=== PATIENT | female | born 1985 | race American Indian/Alaskan Native ===

== ENCOUNTER 2019-04-19 07:35 | Emergency (ER) | payer SELFPAY ==
[2019-04-19 08:02] VITALS: BP 126/84
--- NOTE | 2019-04-19 08:36 | Emergency Department Report ---
Upper Extremity - HPI Chief Complaint: Extremity Injury, Upper Stated Complaint: RT FINGER POSS BROKEN/PAIN Time Seen by Provider: 04/19/19 08:18 Upper Extremity: Left Middle Finger (injured left middle finger and complained of pain and swelling) Occurred When: 1 Day Mechanism: Hit with Object Severity: mild (09/10) Symptoms: Yes Pain with Movement (left middle finger), Yes Swelling (LT middle finger), No Deformity, No Limited Range of Movement (lt middle finger), No Numbness, No Weakness, No Bruising/Ecchymosis, No Laceration or Abrasion Other History: Patient reported that she injured her left middle finger yesterday by jamming. ED Review of Systems ROS: Stated complaint: RT FINGER POSS BROKEN/PAIN Other details as noted in HPI Constitutional: denies: chills, fever Respiratory: denies: cough, shortness of breath Cardiovascular: denies: chest pain, palpitations Gastrointestinal: denies: nausea, vomiting Musculoskeletal: joint swelling, arthralgia. denies: back pain Skin: denies: rash Neurological: denies: weakness, numbness, paresthesias ED Past Medical Hx - Past Medical History Previous Medical History?: Yes Hx Asthma: Yes - Surgical History Past Surgical History?: No - Family History Family history: hypertension - Social History Smoking Status: Current Some Day Smoker Substance Use Type: Alcohol - Medications Home Medications: Home Medications Medication Instructions Recorded Confirmed Last Taken Type Ibuprofen [Motrin] 800 mg PO Q8HR PRN #12 tablet 04/19/19 Unknown Rx Upper Extremity Exam - Exam General: Vital signs noted. No distress. Alert and acting appropriately. 33-year-old female well-nourished well-developed in no acute distress Head and Torso: No HEENT Abnormality, No Neck Tenderness, No Chest/Lungs Abnormality, No Abdominal Tenderness, No Back Tenderness Shoulder Exam: Yes Normal Range of Motion in Shoulder, No Shoulder Tenderness, No Clavicle Tenderness, No Shoulder Deformity, No AC Joint Tenderness Arm Exam: No Arm/Humerus Tenderness, No Arm Deformity Elbow: Yes Normal Range of Motion in Elbow, No Elbow Tenderness, No Elbow Deformity Forearm: No Forearm Tenderness, No Forearm Deformity, No Pain with Pronation, No Pain with Supination Wrist: Yes Normal ROM in Wrist, No Wrist Tenderness, No Wrist Deformity, No Snuffbox Tenderness, No Pain with Axial Thumb Compression Hand: Yes Digit Tenderness (left middle finger DIP and MIP joint), No Hand Tenderness, No Hand Deformity, No Normal ROM in Digit(s) (left middle finger with swelling and tenderness to palpate), No Digit(s) Deformity, No Tendon Dysfunction CMS Exam: Yes Normal Distal Pulses (No cce. + 2 pulses in all extremities, no neurovascular compromise), Yes Normal Capillary Refill, Yes Normal Distal Sensation, No Broken Skin ED Course Vital Signs 04/19/19 08:00 Temperature 98.4 F Pulse Rate 76 Respiratory 18 Rate Blood Pressure 126/84 O2 Sat by Pulse 100 Oximetry - Reevaluation(s) Reevaluation #1: 04/19/19 10:45 stable throughout ED course. Please see procedure note for details and splinted - Orthopedic Splinting/Casting Injury #1 Side: left Upper Extremity Injury Location: finger Upper Extremity Immobilizer: aluminum form splint Additional Comments: She will good color, sensation, movement and temperature to left middle finger ED Medical Decision Making - Radiology Data Radiology results: report reviewed X-ray of left long finger dictated by radiologist and report reviewed by myself. Please see report below Findings [facility] [address] [place] [address] XRay Report Signed Patient: MOSES SANTANA MR#: [id number] : 1985 Acct:[id number] Age/Sex: 33 / F ADM Date: 04/19/19 Loc: ED Attending Dr: Ordering Physician: ÁNGEL CARLIN Date of Service: 04/19/19 Procedure(s): XR finger(s) 1V LT Accession Number(s): [id number] cc: ÁNGEL CARLIN Fluoro Time In Minutes: Left long finger-3 views INDICATION: left middle finger injury with pain and swelling. COMPARISON: None. IMPRESSION: Mild soft tissue swelling about the long finger with no acute fracture or significant DJD. Signer Name: Evans May MD Signed: 04/19/2019 10:24 AM Workstation Name: [id number] Transcribed By: ROBERTO Dictated By: Evans May MD Electronically Authenticated By: Evans May MD Signed Date/Time: 04/19/19 1024 DD/ 1023 TD/TT: - Medical Decision Making 33-year-old patient with injury to left middle finger. Exam showed swelling and tenderness to the IP and MIP joint. Pain with range of motion. X-ray finding and for swelling without any fracture or dislocation. I discussed this with patient in detail also discuss splints and medication and she was understanding. I discussed with her that she needs to follow-up with her primary care doctor in 2-3 days follow-up injury to finger. Please see procedure note for detail on splinted. X-ray report dictated by radiologist and reviewed by myself. See notes for details. Patient discharged home in stable condition. Vital signs stable she is afebrile and in no acute distress her prescription for Motrin. - Differential Diagnosis fracture versus dislocation, contusion versus MSK pain Critical care attestation.: If time is entered above; I have spent that time in minutes in the direct care of this critically ill patient, excluding procedure time. ED Disposition Clinical Impression: Contusion of finger of left hand Qualifiers: Encounter type: initial encounter Finger: middle finger Damage to nail status: without damage Qualified Code(s): S60.032A - Contusion of left middle finger without damage to nail, initial encounter Disposition: DC-01 TO HOME OR SELFCARE Is pt being admited?: No Does the pt Need Aspirin: No Condition: Stable Instructions: Contusion in Adults (ED), RICE Therapy (ED) Additional Instructions: Follow-up primary care physician as discussed. See discharge instruction in Rice therapy If condition worsens, return to the emergency room [facility] Referrals: NIKOLAS MEZA MD [Primary Care Provider] - 2-3 Days Forms: Work/School Release Form(ED)
--- NOTE | 2019-04-19 10:28 | XRay Report ---
Left long finger-3 views INDICATION: left middle finger injury with pain and swelling. COMPARISON: None. IMPRESSION: Mild soft tissue swelling about the long finger with no acute fracture or significant DJ D. Signer Name: Evans May MD Signed: 04/19/2019 10:24 AM Workstation Name: [id number]
== END 2019-04-19 10:56 | disposition home or self-care (01) ==
LOC: ED 07:35
DX: S60.032A Contusion of left middle finger without damage to nail, initial encounter (principal); J45.909 Unspecified asthma, uncomplicated; F17.200 Nicotine dependence, unspecified, uncomplicated; X58.XXXA Exposure to other specified factors, initial encounter; Y93.89 Activity, other specified; Y92.89 Other specified places as the place of occurrence of the external cause; Y99.0 Civilian activity done for income or pay